=== PATIENT | female | born 1990 | race Two or more races ===

== ENCOUNTER 2024-07-09 21:05 | Emergency (ER) | payer MEDICAID, OTHER ==
[~2024-07-09] VITALS: Ht 167.6 cm; Wt 110.5 kg
[2024-07-09 21:11] VITALS: BP 142/80; RESP 18; O2SAT 95
[2024-07-09] MEDS ORDERED: NITROGLYCERIN 0.4 MG SL TAB SL ONE (21:15)
[2024-07-09 23:00] LABS: Basophils # (auto) 0.1 10 ^3/uL (0-0.2); Basophils % (auto) 0.6 % (0.0-2.0); Eosinophils # (auto) 0.3 10 ^3/uL (0-0.8); Eosinophils % (auto) 2.4 % (0.0-7.0); Hematocrit 43.2 % (36.0-46.0); Hemoglobin 14.5 g/dL (12.2-16.2); Lymphocytes # (auto) 3.5 10 ^3/uL (0.4-5.4); Lymphocytes % (auto) 31.2 % (10.0-50.0); Mean Corpuscular Hemoglobin 32.1 pg (28.0-32.0); Mean Corpuscular Hgb Conc. 33.6 g/dL (32.0-36.0); Mean Corpuscular Volume 95.6 fL (80.0-100.0); Monocytes # (auto) 0.8 10 ^3/uL (0-1.3); Monocytes % (auto) 6.9 % (0.0-12.0); Neutrophils # (auto) 6.7 10 ^3/uL (1.6-8.6); Neutrophils % (auto) 58.9 % (37.0-80.0); Platelet Count (auto) 347 10^3/uL (140-450); Red Blood Cells 4.52 10^6/uL (4.0-5.20); Red Cell Distribution Width 13.6 % (11.8-14.3); White Blood Cell 11.3 10^3/uL (4.4-10.8)
[2024-07-09 23:10] LABS: Alanine Aminotransferase 30 U/L (7-40); Albumin 4.4 g/dL (3.2-4.8); Alkaline Phosphatase 77 U/L (46-116); Anion Gap 4 (5-15); Aspartate Aminotransferase 17 U/L (13-40); BUN/Creatinine Ratio 7.4 (10.0-20.0); Bilirubin, Total 0.4 mg/dL (0.2-1.0); Blood Urea Nitrogen 7 mg/dL (9-23); Calcium 9.5 mg/dL (8.7-10.4); Carbon Dioxide 29 mmol/L (20-31); Chloride 105 mmol/L (98-107); Glucose 89 mg/dL (74-106); Potassium 4.3 mmol/L (3.5-5.1); Sodium 138 mmol/L (136-145); Total Protein 6.6 g/dL (5.7-8.2)
[2024-07-10 00:01] LABS: Amphetamine Screen, Urine Neg (NEGATIVE); Barbiturate Scree,Urine Neg (NEGATIVE); Benzodiazephine Screen, Urine Pos (NEGATIVE); Cocaine Screen, Urine Neg (NEGATIVE); Opiate Scree,Urine Pos (NEGATIVE)
[2024-07-10 00:02] LABS: Cannabinoid Screen, Urine Neg (NEGATIVE); Phencyclidine Screen, Urine Neg (NEGATIVE)
[2024-07-10 00:07] LABS: Urine Bacteria FEW /hpf (None Seen); Urine Blood Negative /uL (Negative); Urine Clarity Clear (Clear); Urine Color Yellow (Yellow); Urine Mucus FEW (None Seen); Urine Protein, UAD Negative (Negative); Urine Specific Gravity 1.026 (1.001-1.035); Urine Urobilinogen Normal (Negative); Urine WBC 1 /hpf (0 - 5); Urine pH 5.5 (5.0-9.0)
[2024-07-10 00:14] VITALS: PULSE 86
== END 2024-07-10 02:00 | disposition left against medical advice (07) ==
LOC: ER 21:05
DX: R07.9 Chest pain, unspecified (principal); R10.2 Pelvic and perineal pain; J45.909 Unspecified asthma, uncomplicated; E78.5 Hyperlipidemia, unspecified; Z88.6 Allergy status to analgesic agent; Z79.899 Other long term (current) drug therapy
CPT/HCPCS: 36415; 71045; 80053; 80307; 81001; 83605; 84484; 84702; 85025; 85379; 93005

== ENCOUNTER 2024-09-06 10:47 | Emergency (ER) | payer MEDICAID ==
[~2024-09-06] VITALS: Ht 162.6 cm; Wt 113.4 kg
[2024-09-06 12:10] VITALS: BP 121/72; PULSE 96; RESP 14; TEMP 99.2; O2SAT 95
[2024-09-06 12:21] LABS: Urine Bacteria None Seen /hpf (None Seen)
--- NOTE | 2024-09-06 12:24 | ED.PDOC ---
General HPI Comments A 34 YEAR OLD FEMALE PRESENTS TO THE ED WITH COMPLAINT OF PELVIC PAIN. PATIENT STATES SHE HAS BEEN EXPERIENCING PELVIC PAIN FOR THE PAST 2 DAYS THAT STARTED AFTER HAVING SEXUAL INTERCOURSE WITH HER . PATIENT ALSO NOTES SHE HAS HAD MILD DIFFICULTY URINATING DUE TO HER PAIN. PATIENT DENIES DYSURIA, HEMATURIA, FLANK PAIN, FEVER, CHILLS, SHORTNESS OF BREATH, CHEST PAIN, ABDOMINAL PAIN, NAUSEA, VOMITING, HEADACHE, OR OTHER COMPLAINTS. NO OTHER SYMPTOMS OR MODIFYING FACTORS AT THIS TIME. PATIENT IS ALERT, ORIENTED X 4, AND HAS STEADY GAIT. Chief Complaint: Pelvic Pain Time Seen by MD: 11:14 Reviewed notes: Nurses Notes, Medications, Allergies Allergies: Coded Allergies: NSAIDs (Verified Allergy, Unknown, 07/09/24) Information Source: Patient Mode of Arrival: Ambulatory Severity: Moderate Inability to void: None Timing: Days Duration: Since onset, Days Prehospital treatment: None Onset: Following sexual contact Symptoms: Other (SUPRAPUBIC PAIN) History of: Sexual activity Location: Suprapubic Modifying factors: None associated signs and symptoms: None Past Medical History PAST MEDICAL HISTORY: Denies Surgical History: Hysterectomy TEACHING PASTOR History: No Pertinent TEACHING PASTOR History Family History Family History: Reviewed,noncontributory to illness Social History Smoker: Non-Smoker Alcohol: Denies ETOH Use Drugs: Denies Drug Use Lives In: Home Constitutional: denies: chills, diaphoresis, fatigue, fever, malaise, sweats, weakness, others EENTM: denies: blurred vision, double vision, ear bleeding, ear discharge, ear drainage, ear pain, ear ringing, eye pain, eye redness, hearing loss, mouth pain, mouth swelling, nasal discharge, nose bleeding, nose congestion, nose pain, photophobia, tearing, throat pain, throat swelling, voice changes, others Respiratory: denies: cough, hemoptysis, orthopnea, SOB at rest, shortness of breath, SOB with excertion, stridor, wheezing, others Cardiovascular: denies: chest pain, dizzy spells, diaphoresis, Dyspnea on exertion, edema, irregular heart beat, left arm pain, lightheadedness, palpitations, PND, syncope, others Gastrointestinal: denies: abdomen distended, abdominal pain, blood streaked bowels, constipated, diarrhea, dysphagia, difficulty swallowing, hematemesis, melena, nausea, poor appetite, poor fluid intake, rectal bleeding, rectal pain, vomiting, others Genitourinary: reports: dysuria, pain (SUPRAPUBIC PAIN); denies: abnormal va katerin bleeding, burning, dyspareunia, flank pain, frequency, hematuria, incontinence, , vagina discharge, urgency, others Neurological: denies: dizziness, fainting, headache, left sided numbness, left sided weakness, numbness, paresthesia, pre-existing deficit, right sided numbness, right sided weakness, seizure, speech problems, tingling, tremors, weakness, others Musculoskeletal: denies: back pain, gout, joint pain, joint swelling, muscle pain, muscle stiffness, neck pain, others Integumetry: denies: bruises, change in color, change in hair/nails, dryness, laceration, lesions, lumps, rash, wounds, others Allergic/Immunocompromised: denies: Difficulty Healing, Frequent Infections, Hives, Itching, others Hematologic/Lymphatic: denies: anemia, blood clots, easy bleeding, easy bruising, swollen glands, others Endocrine: denies: excessive hunger, excessive sweating, excessive thirst, excessive urination, flushing, intolerance to cold, intolerance to heat, unexplained weight gain, unexplained weight loss, others Psychiatric: denies: anxiety, bipolar disorder, depression, hopeless, panic disorder, schizophrenia, sleepless, suicidal, others All Other Systems: Reviewed and Negative Physical Exam General Appearance: No Apparent Distress, Obese HEENT: Normal ENT Inspection, PERRL/EOMI, Pharynx Normal, TMs Normal Neck: Full Range of Motion, Non-Tender, Normal, Normal Inspection Respiratory: Chest Non-Tender, Lungs Clear, No Accessory Muscle Use, No Respiratory Distress, Normal Breath Sounds Cardiovascular: No Edema, No JVD, No Murmur, No Gallop, Normal Peripheral Pulses, Regular Rate/Rhythm Breast Exam: Deferred Gastrointestinal: No Organomegaly, No Pulsatile Mass, Normal Bowel Sounds, Soft, Suprapubic (TENDERNESS, NO GUARDING AND REBOUND TENDERNESS. ) Genitalia: Deferred Pelvic: Normal External Exam, Tender Uterus Rectal: Deferred Extremities: No calf tenderness, Normal capillary refill, Normal inspection, Normal range of motion, Non-tender, No pedal edema Musculoskeletal : Apperance: Normal Neurologic: Alert, pension adviser II-XII nml as Tested, No Motor Deficits, Normal Affect, Normal Mood, No Sensory Deficits Cerebellar Function: Normal Reflexes: Normal Skin: Dry, Normal Color, Warm Peripheral Pulses: 2+ carotid (R), 2+ carotid (L) Lymphatic: No Adenopathy Was a procedure done? Was a procedure done?: No Differential Diagnosis Kidney stone (Female): N/A Kidney stone (Male): N/A Penile/Scrotal: N/A Urinary Problem (Male): N/A Urinary Problem (Female): UTI, Vaginitis, Other (UTERINE FIBROID ) X-Ray, Labs, Meds, VS Vital Signs Date Time Temp Pulse Resp B/P (MAP) Pulse Ox O2 Delivery O2 Flow Rate FiO2 09/06/24 12:10 99.2 96 14 121/72 (88) 95 99.2 09/06/24 12:10 96 14 95 Room Air 09/06/24 11:44 99.2 96 14 121/72 (88) 95 Lab Test 09/06/24 11:25 Range/Units Urine Color Light-yellow Yellow Urine Clarity Clear Clear Urine pH 5.5 5.0-9.0 Urine Specific [place] 1.014 1.001-1.035 Urine Protein Negative Negative Urine Ketones Negative Negative Urine Blood Negative Negative /uL Urine Nitrite Negative Negative Urine Bilirubin Negative Negative Urine Urobilinogen Normal Negative mg/dL Urine Leukocyte Esterase Negative Negative /uL Urine RBC 1 0 - 4 /hpf Urine WBC 2 0 - 5 /hpf Urine Squamous Epithelial Cells Few <5 /hpf Urine Bacteria None seen None Seen /hpf Urine Mucus Few None Seen Urine Yeast (Budding) Occasional None Seen /hpf Urine Glucose Normal Normal mg/dL Urine Test Negative Negative Current Medications Medications (Trade) Dose Ordered Sig/Anel Route Start Time Stop Time Status Last Admin Ketorolac Tromethamine (Toradol Injection) 60 mg ONCE ONCE IM 09/06/24 13:00 09/06/24 13:01 DC 09/06/24 12:57 PATIENT: SANTI BAKER VACCT: [id number]: [id number] : 1990 LOC: ER ROOM / BED: / AGE / SEX: 34 / F ADM STATUS: REG ER SERVICE [id number] ORDERING PHYSICIAN: CHARLENE ESCALERA PROCEDURE(s): PELUS - PELVIC REASON: SUPRAPUBIC PAIN ORDER NUMBER(s): [id number], ACCESSION NUMBER(s): [id number] INDICATION: SUPRAPUBIC PAIN TECHNIQUE: Multiple real-time grayscale transabdominal sonographic images along with color and duplex Doppler of the uterus and ovaries were obtained. COMPARISON: None FINDINGS: The uterus is not visualized. The right ovary measures 3.3 x 2.9 x 2.6 cm. Normal right ovarian color doppler flow. The left ovary is not visualized. No free fluid is identified. IMPRESSION: 1. Nonvisualized uterus and left ovary, consistent with provided history of prior hysterectomy and left oophorectomy. Otherwise, grossly unremarkable pelvic ultrasound. HS:Y ATED BY: TODD FLORENCE DO DICTATED DATE/TIME: 09/06/241315 SIGNED BY: TODD FLORENCE DO SIGNED DATE/TIME: 09/06/241315 CC: X-Ray, Labs, Meds, VS Comment EXTERNAL NOTES: NONE LABS ORDERED: UA, URINE REVIEWED AND INTERPRETED RESULTS: IMAGING ORDERED: US PELVIS: [INTERPRETED BY [employer]. NO ACUTE ABNORMALITIES VISUALIZED. P ENDING RADIOLOGY REVIEW.] INDEPENDENT HISTORIANS: NONE TREATMENTS ORDERED: TORADOL 60 MG IM PATIENT'S CASE AND RESULTS HAVE BEEN DISCUSSED WITH THE ED ATTENDING PHYSICIAN AND THEY AGREE WITH MY PLAN OF CARE. I HAVE DISCUSSED IMAGING AND LAB RESULTS WITH PATIENT AND HAVE INSTRUCTED THEM TO FOLLOW UP WITH THEIR PCP IN 1-2 DAYS. THE PATIENT FULLY UNDERSTANDS THEIR RESULTS AND IS AWARE THEY NEED TO FOLLOW UP WITH THEIR PCP FOR FURTHER EVALUATION IF THEIR SYMPTOMS PERSIST. Images Reviewed?: Images reviewed and evaluated by me Time of 1ST Reevaluation: 13:20 Reevaluation 1ST: Improved Patient Education/Counseling: Diagnosis, Treatment, Need For Follow Up Family Education/Counseling: Diagnosis, Treatment, Need For Follow Up Medical Screening: No EMC Exist At This Time Departure 1 Departure Time of Disposition: 13:20 Impression: Primary Impression: Abdominal wall pain in suprapubic region Disposition: 01 HOME / SELF CARE / HOMELESS Condition: Stable Additional Instructions: FOLLOW-UP WITH PCP IN 1 TO 2 DAYS. TAKE MEDICATIONS PRESCRIBED. RETURN TO ED FOR ANY NEW OR WORSENING SYMPTOMS. Written Prescriptions PT STATES SHE HAS PAIN MEDICATION AT HOME. Discharged With: Self Critical Care Note Critical Care Time?: No Stability Stability form required: No I personally scribed for CHARLENE ESCALERA ([email or web address]) on 09/06/24 at 12:24. Electronically submitted by Miky Sanchez ([email or web address]). I personally scribed for WINDY JOHNSON MD ([email or web address]) on 09/06/24 at 13:10. Electronically submitted by Miky Sanchez ([email or web address]). CHARLENE ESCALERA Sep 06, 2024 12:24 WINDY JOHNSON MD Sep 06, 2024 13:10
[2024-09-06 12:38] LABS: Urine Blood Negative /uL (Negative); Urine Budding Yeast OCCASIONAL /hpf (None Seen); Urine Clarity Clear (Clear); Urine Color Light-Yellow (Yellow); Urine Mucus FEW (None Seen); Urine Protein, UAD Negative (Negative); Urine Specific Gravity 1.014 (1.001-1.035); Urine Urobilinogen Normal (Negative); Urine WBC 2 /hpf (0 - 5); Urine pH 5.5 (5.0-9.0)
[2024-09-06] MEDS: KETOROLAC TROMETH 60MG/2ML VIAL IM ONE (12:57)
--- NOTE | 2024-09-06 13:18 | DVH ---
INDICATION: SUPRAPUBIC PAIN TECHNIQUE: Multiple real-time grayscale transabdominal sonographic images along with color and duplex Doppler of the uterus and ovaries were obtained. COMPARISON: None FINDINGS: The uterus is not visualized. The right ovary measures 3.3 x 2.9 x 2.6 cm. Normal right ovarian color doppler flow. The left ovary is not visualized. No free fluid is identified. IMPRESSION: 1. Nonvisualized uterus and left ovary, consistent with provided history of prior hysterectomy and le ft oophorectomy. Otherwise, grossly unremarkable pelvic ultrasound. HS:Y
== END 2024-09-06 13:20 | disposition home or self-care (01) ==
LOC: ER 10:47
DX: R10.2 Pelvic and perineal pain (principal); Z90.710 Acquired absence of both cervix and uterus; Z88.6 Allergy status to analgesic agent
CPT/HCPCS: 76856; 81001; 81025; 96372; 99285; J1885

== ENCOUNTER 2025-02-11 13:03 | Emergency (ER) | payer MEDICAID, SELFPAY ==
[~2025-02-11] VITALS: Ht 160 cm; Wt 123.9 kg
[2025-02-11 13:33] VITALS: BP 126/84; PULSE 88; RESP 20; TEMP 98.2; O2SAT 94
--- NOTE | 2025-02-11 13:43 | ED.PDOC ---
GI ASSESSMENT HPI Comments 34 year old female presents to the ED with chief complaint of suprapubic pain. Patient reports that she has been experiencing sharp suprapubic pain since this morning. Patient relays that her pain is similar to before she had her hysterectomy performed. Patient notes she has not been sexually active in 2 weeks. Patient denies any N/V/D, dysuria, hematuria, vaginal bleeding, flank pain, dizziness, fever, or chills. Chief Complaint: Pelvic Pain Time Seen by MD: 13:35 Reviewed Notes: Nurses Notes, Medications, Allergies Allergies: Coded Allergies: Acetaminophen (Verified Allergy, Unknown, 02/11/25) Hydrocodone (Verified Allergy, Unknown, 02/11/25) NSAIDs (Verified Allergy, Unknown, 07/09/24) Information Source: Patient Mode of Arrival: Ambulatory Timing: Hours Duration: Since onset Prehospital treatment: None Quality: Sharp Vomitus: None Stool: Normal Severity: Moderate Recent: None Recent Hx of: None Pain Location: Suprapubic Modifying Factors: Nothing Associated sign and symptoms: Abdominal Pain Past Medical History PAST MEDICAL HISTORY: Arthritis Past Medical History (Other): Prolapsed uterus, kyphosis Surgical History: Hysterectomy LINE SERVICE PERSON History: No Pertinent LINE SERVICE PERSON History Family History Family History: Reviewed,noncontributory to illness Social History Smoker: Non-Smoker Alcohol: Denies ETOH Use Drugs: Denies Drug Use Lives In: Home Constitutional: denies: chills, diaphoresis, fatigue, fever, malaise, sweats, weakness, others EENTM: denies: blurred vision, double vision, ear bleeding, ear discharge, ear drainage, ear pain, ear ringing, eye pain, eye redness, hearing loss, mouth pain, mouth swelling, nasal discharge, nose bleeding, nose congestion, nose pain, photophobia, tearing, throat pain, throat swelling, voice changes, others Respiratory: denies: cough, hemoptysis, orthopnea, SOB at rest, shortness of breath, SOB with excertion, stridor, wheezing, others Cardiovascular: denies: chest pain, dizzy spells, diaphoresis, Dyspnea on exertion, edema, irregular heart beat, left arm pain, lightheadedness, pa lpitations, PND, syncope, others Gastrointestinal: reports: abdominal pain (Suprapubic pain); denies: abdomen distended, blood streaked bowels, constipated, diarrhea, dysphagia, difficulty swallowing, hematemesis, melena, nausea, poor appetite, poor fluid intake, rectal bleeding, rectal pain, vomiting, others Genitourinary: denies: abnormal vagina bleeding, burning, dyspareunia, dysuria, flank pain, frequency, hematuria, incontinence, pain, , vagina discharge, urgency, others Neurological: denies: dizziness, fainting, headache, left sided numbness, left sided weakness, numbness, paresthesia, pre-existing deficit, right sided numbness, right sided weakness, seizure, speech problems, tingling, tremors, weakness, others Musculoskeletal: denies: back pain, gout, joint pain, joint swelling, muscle pain, muscle stiffness, neck pain, others Allergic/Immunocompromised: denies: Difficulty Healing, Frequent Infections, Hives, Itching, others Hematologic/Lymphatic: denies: anemia, blood clots, easy bleeding, easy bruising, swollen glands, others Endocrine: denies: excessive hunger, excessive sweating, excessive thirst, excessive urination, flushing, intolerance to cold, intolerance to heat, unexplained weight gain, unexplained weight loss, others Psychiatric: denies: anxiety, bipolar disorder, depression, hopeless, panic disorder, schizophrenia, sleepless, suicidal, others All Other Systems: Reviewed and Negative Physical Exam General Appearance: Moderate Distress, Normal HEENT: Normal ENT Inspection, Pharynx Normal, TMs Normal Neck: Full Range of Motion, Non-Tender, Normal, Normal Inspection Respiratory: Chest Non-Tender, Lungs Clear, No Accessory Muscle Use, No Respiratory Distress, Normal Breath Sounds Cardiovascular: No Edema, No JVD, No Murmur, No Gallop, Normal Peripheral Pulses, Regular Rate/Rhythm Breast Exam: Deferred Gastrointestinal: No Organomegaly, Non Tender, No Pulsatile Mass, Normal Bowel Sounds, Soft Genitalia: Deferred Pelvic: Deferred Rectal: Deferred Extremities: No calf tenderness, Normal capillary refill, Normal inspection, Normal range of motion, Non-tender, No pedal edema Musculoskeletal : Apperance: Normal Neurologic: Alert, companion II-XII nml as Tested, No Motor Deficits, Normal Affect, Normal Mood, No Sensory Deficits Cerebellar Function: Normal Reflexes: Normal Skin: Dry, Normal Color, Warm Peripheral Pulses: 3+ Radial (R), 3+ Radial (L) Lymphatic: No Adenopathy Was a procedure done? Was a procedure done?: No GI differential Dx Differential Diagnosis: Constipation, Diverticular disease, Esophagitis, Gastritis/PUD, Gastroenteritis X-Ray, Labs, Meds, VS Vital Signs Date Time Temp Pulse Resp B/P (MAP) Pulse Ox O2 Delivery O2 Flow Rate FiO2 02/11/25 13:33 98.2 88 20 126/84 (98) 94 98.2 Patient alert. Came in because of pelvic pain. Vitals stable. Answering questions. Ambulating. No sign of any distress. Explained to the patient at 4:55 p.m. that we are waiting for ultrasound. Continue monitoring. Time of 1ST Reevaluation: 14:35 Reevaluation 1ST: Unchanged Patient Education/Counseling: Diagnosis, Treatment Family Education/Counseling: No Family Present Additional Information The following tests were ordered, and results were reviewed by me: Pelvic US and UA Additional Information was gathered from interviewing the following independent historians: None I reviewed and agreed with the following test results read by other providers: Pelvic US I discussed treatment and results with medical personnel and: patient Comprehensive systems review obtained and negative except for what is stated in the HPI. Departure 1 Departure Time of Disposition: 16:47 Impression: Primary Impression: Pelvic pain Disposition: 01 HOME / SELF CARE / HOMELESS Condition: Good Discharged With: Self Comments Spoke to and examined patient at 1335, discussing treatment plan at this time. Critical Care Note Critical Care Time?: No Stability Stability form required: No Heart Score Heart Score: Heart Score Response (Comments) Value History N/A 0 EKG N/A 0 Age N/A 0 Risk Factors N/A 0 Troponin N/A 0 Total 0 I personally scribed for SHAE MIRELES MD ([email or web address]) on 02/11/25 at 13:42. Electronically submitted by Jun Pizano ([email or web address]). SHAE MIRELES MD February 11, 2025 13:42
--- NOTE | 2025-02-11 14:53 | DVH ---
INDICATION: pelvicpain TECHNIQUE: Multiple real-time grayscale transabdominal sonographic images along with color and duplex Doppler of the uterus and ovaries were obtained. COMPARISON: US PELVIC on DOS: 09/06/24 FINDINGS: The uterus surgically removed The right ovary measures 3.3 x 2.8 x 3.6 cm. 1.6 x 2 x 1.7 cm anechoic lesion associated with the ri ght ovary consistent with a follicle. The left ovary surgically removed. Subsequent color and duplex Doppler interrogation of the right ovary demonstrated. IMPRESSION: 1. Uterus surgically removed. 2. Left ovary surgically removed. 3 right ovary shows small follicle within it.
--- NOTE | 2025-02-11 17:51 | ED.PDOC ---
General HPI Comments Patient came in because of pelvic pain which started few days ago progressively getting worse. She does have a history of hysterectomy. States that she has not had any trauma to that area. Denies any burning on urination. Denies any other symptoms. Chief Complaint: Pelvic Pain Time Seen by MD: 13:17 Reviewed notes: Nurses Notes, Medications, Allergies Allergies: Coded Allergies: Acetaminophen (Verified Allergy, Unknown, 02/11/25) Hydrocodone (Verified Allergy, Unknown, 02/11/25) NSAIDs (Verified Allergy, Unknown, 07/09/24) Information Source: Patient Mode of Arrival: Ambulatory Severity: Mild Timing: Days Duration: Since onset Onset: Spontaneous Location: Suprapubic Past Medical History PAST MEDICAL HISTORY: Arthritis Past Medical History (Other): Prolapsed uterus, kyphosis Surgical History: Hysterectomy MEDIA CONSULTANT OUTSIDE SALES History: No Pertinent MEDIA CONSULTANT OUTSIDE SALES History Family History Family History: Reviewed,noncontributory to illness Social History Smoker: Non-Smoker Alcohol: Denies ETOH Use Drugs: Denies Drug Use Lives In: Home Constitutional: denies: chills, diaphoresis, fatigue, fever, malaise, sweats, weakness, others EENTM: denies: blurred vision, double vision, ear bleeding, ear discharge, ear drainage, ear pain, ear ringing, eye pain, eye redness, hearing loss, mouth pain, mouth swelling, nasal discharge, nose bleeding, nose congestion, nose pain, photophobia, tearing, throat pain, throat swelling, voice changes, others Respiratory: denies: cough, hemoptysis, orthopnea, SOB at rest, shortness of breath, SOB with excertion, stridor, wheezing, others Cardiovascular: denies: chest pain, dizzy spells, diaphoresis, Dyspnea on exertion, edema, irregular heart beat, left arm pain, lightheadedness, palpitations, PND, syncope, others Gastrointestinal: denies: abdomen distended, abdominal pain, blood streaked bowels, constipated, diarrhea, dysphagia, difficulty swallowing, hematemesis, melena, nausea, poor appetite, poor fluid intake, rectal bleeding, rectal pain, vomiting, others Genitourinary: reports: pain (Pelvis); denies: abnormal vagina bleeding, burning, dyspareunia, dysuria, flank pain, frequency, hematuria, incontinence, , vagina discharge, urgency, others Neurological: reports: paresthesia; denies: dizziness, fainting, headache, left sided numbness, left sided weakness, numbness, pre-existing deficit, right sided numbness, right sided weakness, seizure, speech problems, tingling, tremors, weakness, others Musculoskeletal: denies: back pain, gout, joint pain, joint swelling, muscle pain, muscle stiffness, neck pain, others Integumetry: denies: bruises, change in color, change in hair/nails, dryness, laceration, lesions, lumps, rash, wounds, others Allergic/Immunocompromised: denies: Difficulty Healing, Frequent Infections, Hives, Itching, others Hematologic/Lymphatic: denies: anemia, blood clots, easy bleeding, easy bruising, swollen glands, others Endocrine: denies: excessive hunger, excessive sweating, excessive thirst, excessive urination, flushing, intolerance to cold, intolerance to heat, unexplained weight gain, unexplained weight loss, others Psychiatric: denies: anxiety, bipolar disorder, depression, hopeless, panic disorder, schizophrenia, sleepless, suicidal, others Physical Exam General Appearance: Moderate Distress HEENT: Normal ENT Inspection, Pharynx Normal, TMs Normal Neck: Full Range of Motion, Non-Tender, Normal, Normal Inspection Respiratory: Chest Non-Tender, Lungs Clear, No Accessory Muscle Use, No Respiratory Distress, Normal Breath Sounds Cardiovascular: No Edema, No JVD, No Murmur, No Gallop, Normal Peripheral Pulses, Regular Rate/Rhythm Breast Exam: Deferred Gastrointestinal: No Organomegaly, Non Tender, No Pulsatile Mass, Normal Bowel Sounds, Soft Genitalia: Deferred Pelvic: Deferred Rectal: Deferred Extremities: No calf tenderness, Normal capillary refill, Normal inspection, Normal range of motion, Non-tender, No pedal edema Musculoskeletal : Apperance: Normal Neurologic: Alert, portfolio director II-XII nml as Tested, No Motor Deficits, Normal Affect, Normal Mood, No Sensory Deficits Cerebellar Function: Normal Reflexes: Normal Skin: Dry, Normal Color, Warm Peripheral Pulses: 3+ Radial (R), 3+ Radial (L) Lymphatic: No Adenopathy Was a procedure done? Was a procedure done?: No Differential Diagnosis Kidney stone (Female): Musculoskeletal pain, Urinary obstruction, Urolithiasis X-Ray, Labs, Meds, VS Vital Signs Date Time Temp Pulse Resp B/P (MAP) Pulse Ox O2 Delivery O2 Flow Rate FiO2 02/11/25 13:33 98.2 88 20 126/84 (98) 94 98.2 Patient alert. Ambulating. Vitals stable. Answering questions. Ultrasound reviewed does not show any acute process. Could not find the patient to explained the ultrasound report. We will have the staff call the patient. Continue to monitor. Continue to search for the patient. Time of 1ST Reevaluation: 16:47 Reevaluation 1ST: Improved Time of 2ND Reevaluation: 17:49 Reevaluation 2ND: Improved Patient Education/Counseling: Diagnosis, Treatment, Prognosis, Need For Follow Up Family Education/Counseling: No Family Present Departure 1 Departure Time of Disposition: 16:47 Impression: Primary Impression: Pelvic pain Disposition: 30 STILL A PATIENT Condition: Good Discharged With: Self Critical Care Note Critical Care Time?: No Stability Stability form required: No Heart Score Heart Score: Heart Score Response (Comments) Value History N/A 0 EKG N/A 0 Age N/A 0 Risk Factors N/A 0 Troponin N/A 0 Total 0 SHAE MIRELES MD February 11, 2025 17:51
== END 2025-02-11 17:51 | disposition left against medical advice (07) ==
LOC: ER 13:13
DX: R10.2 Pelvic and perineal pain (principal); M19.90 Unspecified osteoarthritis, unspecified site; Z90.710 Acquired absence of both cervix and uterus; Z88.5 Allergy status to narcotic agent; Z88.6 Allergy status to analgesic agent
CPT/HCPCS: 76830; 76856

== ENCOUNTER 2025-05-05 10:45 | Emergency (ER) | payer SELFPAY ==
[~2025-05-05] VITALS: Ht 160 cm; Wt 127.3 kg
--- NOTE | 2025-05-05 11:11 | ED.PDOC ---
HPI (NEURO) HPI Comments 35 y/o F, with PMHx of HTN presents to the for CC of chest pain. Patient states, she has been having a generalized headache with associated symptoms of nausea and body-pain x1week. Patient reports, new onset symptoms of chest pain with shortness of breath as of this morning (05/05/25). Patient denies vomiting, photophobia, fatigue, weakness, palpitations, or recent cough. No other associated symptoms, modifiers, recent injuries or sick contacts present at this time. Chief Complaint: Headache Time Seen by MD: 11:00 Reviewed Notes: Nurses Notes, Medications, Allergies Information Source: Patient Mode of Arrival: Ambulatory Severity: Moderate Headache Severity: Moderate Timing: Weeks Duration: Since onset Prehospital treatment: None Headache Location: Generalized Onset: At rest Circumstances: Spontaneous Symptoms: None History of: None Modifying factors: Nothing Associated Signs and Symptoms: Headache, None Past Medical History PAST MEDICAL HISTORY: Arthritis Surgical History: Hysterectomy PROGRAM DIRECTOR/MORNING SHOW HOST History: No Pertinent PROGRAM DIRECTOR/MORNING SHOW HOST History Family History Family History: Reviewed,noncontributory to illness Social History Smoker: Non-Smoker Alcohol: Denies ETOH Use Drugs: Denies Drug Use Lives In: Home Constitutional: denies: chills, diaphoresis, fatigue, fever, malaise, sweats, weakness, others EENTM: denies: blurred vision, double vision, ear bleeding, ear discharge, ear drainage, ear pain, ear ringing, eye pain, eye redness, hearing loss, mouth pain, mouth swelling, nasal discharge, nose bleeding, nose congestion, nose pain, photophobia, tearing, throat pain, throat swelling, voice changes, others Respiratory: reports: shortness of breath; denies: cough, hemoptysis, orthopnea, SOB at rest, SOB with excertion, stridor, wheezing, others Cardiovascular: reports: chest pain; denies: dizzy spells, diaphoresis, Dyspnea on exertion, edema, irregular heart beat, left arm pain, lightheadedness, palpitations, PND, syncope, others Gastrointestinal: reports: nausea; denies: abdomen distended, abdominal pain, blood streaked bowels, constipated, diarrhea, dysphagia, difficulty swallowing, hematemesis, melena, poor appetite, poor fluid intake, rectal bleeding, rectal pain, vomiting, others Genitourinary: denies: abnormal vagina bleeding, burning, dyspareunia, dysuria, flank pain, frequency, hematuria, incontinence, pain, , vagina discharge, urgency, others Neurological: reports: headache; denies: dizziness, fainting, left sided numbness, left sided weakness, numbness, paresthesia, pre-existing deficit, right sided numbness, right sided weakness, seizure, speech problems, tingling, tremors, weakness, others Musculoskeletal: denies: back pain, gout, joint pain, joint swelling, muscle pain, muscle stiffness, neck pain, others Integumetry: denies: bruises, change in color, change in hair/nails, dryness, laceration, lesions, lumps, rash, wounds, others Allergic/Immunocompromised: denies: Difficulty Healing, Frequent Infections, Hives, Itching, others Hematologic/Lymphatic: denies: anemia, blood clots, easy bleeding, easy bruising, swollen glands, others Endocrine: denies: excessive hunger, excessive sweating, excessive thirst, excessive urination, flushing, intolerance to cold, intolerance to heat, unexplained weight gain, unexplained weight loss, others Psychiatric: denies: anxiety, bipolar disorder, depression, hopeless, panic disorder, schizophrenia, sleepless, suicidal, others All Other Systems: Reviewed and Negative Physical Exam General Appearance: Moderate Distress HEENT: Normal ENT Inspection, Pharynx Normal, TMs Normal Neck: Full Range of Motion, Non-Tender, Normal, Normal Inspection Respiratory: Chest Non-Tender, Lungs Clear, No Accessory Muscle Use, No Respiratory Distress, Normal Breath Sounds Cardiovascular: No Edema, No JVD, No Murmur, No Gallop, Normal Peripheral Pulses, Regular Rate/Rhythm Breast Exam: Deferred Gastrointestinal: No Organomegaly, Non Tender, No Pulsatile Mass, Normal Bowel Sounds, Soft Genitalia: Deferred Pelvic: Deferred Rectal: Deferred Extremities: No calf tenderness, Normal capillary refill, Normal inspection, Normal range of motion, Non-tender, No pedal edema Musculoskeletal : Apperance: Normal Neurologic: Alert, director operations II-XII nml as Tested, No Motor Deficits, Normal Affect, Normal Mood, No Sensory Deficits Cerebellar Function: Normal Reflexes: Normal Skin: Dry, Normal Color, Warm Peripheral Pulses: 3+ Radial (R), 3+ Radial (L) Lymphatic: No Adenopathy Was a procedure done? Was a procedure done?: No Differential Diagnosis (SZ) Seizure: Psychogenic Seizure, Closed Head Injury, CVA/TIA, N/A General Weakness: N/A Headache: Cluster, Migraine X-Ray, Labs, Meds, VS Vital Signs Date Time Temp Pulse Resp B/P (MAP) Pulse Ox O2 Delivery O2 Flow Rate FiO2 05/05/25 10:46 98.2 78 18 127/76 98 98.2 Lab Test 05/05/25 11:51 05/05/25 11:07 Range/Units Troponin I High Sensitivity < 3 L </=34 ng/L Urine Color Yellow Yellow Urine Clarity Clear Clear Urine pH 6.5 5.0-9.0 Urine Specific [place] 1.018 1.001-1.035 Urine Protein Negative Negative Urine Ketones Negative Negative Urine Blood Negative Negative /uL Urine Nitrite Negative Negative Urine Bilirubin Negative Negative Urine Urobilinogen Normal Negative mg/dL Urine Leukocyte Esterase Negative Negative /uL Urine RBC 2 0 - 4 /hpf Urine Microscopic WBC < 1 0-5 /HPF Urine Squamous Epithelial Cells Few <5 /hpf Urine Bacteria None seen None Seen /hpf Urine Glucose Normal Normal mg/dL Patient alert. Complaining of chest discomfort. Vitals stable. Answering questions. Saturation pristine on room air. Heart rate within normal limits. Urinalysis within normal limits. Cardiac marker within normal limits. Explained to the patient. Was told to follow up with her primary care physician. Was told to come back if there is any problem. Time of 1ST Reevaluation: 11:30 Reevaluation 1ST: Improved Time of 2ND Reevaluation: 13:29 Reevaluation 2ND: Improved Patient Education/Counseling: Diagnosis, Treatment Family Education/Counseling: No Family Present Departure 1 Departure Time of Disposition: 13:36 Impression: Primary Impression: Musculoskeletal pain Disposition: 01 HOME / SELF CARE / HOMELESS Condition: Good Discharged With: Self Critical Care Note Critical Care Time?: No Stability Stability form required: No Heart Score Heart Score: Heart Score Response (Comments) Value History Slightly Suspicious 0 EKG Normal 0 Age <45 0 Risk Factors No known risk factors 0 Troponin Normal limit 0 Total 0 I personally scribed for SHAE MIRELES MD ([email or web address]) on 05/05/25 at 11:11. Electronically submitted by Dotty Dawkins ([email or web address]). SHAE MIRELES MD May 05, 2025 11:11
[2025-05-05 12:45] LABS: Urine Protein, UAD Negative (Negative)
[2025-05-05 13:40] VITALS: BP 138/75; PULSE 79; RESP 16; TEMP 98.3; O2SAT 100
== END 2025-05-05 13:55 | disposition home or self-care (01) ==
LOC: ER 10:45
DX: M79.18 Myalgia, other site (principal); M19.90 Unspecified osteoarthritis, unspecified site; Z90.710 Acquired absence of both cervix and uterus
CPT/HCPCS: 36415; 81001; 84484

== ENCOUNTER 2025-05-09 09:21 | Emergency (ER) | payer SELFPAY ==
[~2025-05-09] VITALS: Ht 160 cm; Wt 125.8 kg
[2025-05-09 09:23] VITALS: BP 119/81; PULSE 91; RESP 18; TEMP 98.1; O2SAT 99
--- NOTE | 2025-05-09 09:52 | ED.PDOC ---
FACTORER HPI Comments 35 year old female presents to the ED with a chief complaint of vaginal d ischarge onset 3 days. Patient states she has been experiencing vaginal discharge with foul odor as well as bumps on vaginal region, headaches for the past 3 days. She is sexually active with 1 partner. Was recently seen in this ED, states symptoms have not improved. Denies any PMHx as well as nausea, vomiting, diarrhea, chest pain, shortness of breath. No other symptoms or modifying factors present at this time. Chief Complaint: Vaginal Discharge Time Seen by MD: 09:40 Reviewed Notes: Medications, Allergies Allergies: Coded Allergies: Hydrocodone (Verified Allergy, Unknown, 02/11/25) Morphine (Verified Allergy, Unknown, 05/05/25) NSAIDs (Verified Allergy, Unknown, 07/09/24) Information Source: Patient Mode of Arrival: Ambulatory Timing: Days Prehospital treatment: None Severity: Moderate Vaginal Lesions: Other (bumps) Vaginal Mass: None Onset Of Mass/Bleeding: Spontaneous Sexual Activity: Sexually Active Associated Signs and Symptoms: Vaginal Discharge Past Medical History PAST MEDICAL HISTORY: Arthritis Surgical History: Hysterectomy WHITE HAT HACKER History: No Pertinent WHITE HAT HACKER History Family History Family History: Reviewed,noncontributory to illness Social History Smoker: Non-Smoker Alcohol: Denies ETOH Use Drugs: Denies Drug Use Lives In: Home Constitutional: denies: chills, diaphoresis, fatigue, fever, malaise, sweats, weakness, others EENTM: denies: blurred vision, double vision, ear bleeding, ear discharge, ear drainage, ear pain, ear ringing, eye pain, eye redness, hearing loss, mouth pain, mouth swelling, nasal discharge, nose bleeding, nose congestion, nose pain, photophobia, tearing, throat pain, throat swelling, voice changes, others Respiratory: denies: cough, hemoptysis, orthopnea, SOB at rest, shortness of breath, SOB with excertion, stridor, wheezing, others Cardiovascular: denies: chest pain, dizzy spells, diaphoresis, Dyspnea on exertion, edema, irregular heart beat, left arm pain, lightheadedness, palpitations, PND, syncope, others Gastrointestinal: denies: abdomen distended, abdominal pain, blood streaked bowels, constipated, diarrhea, dysphagia, difficulty swallowing, hematemesis, melena, nausea, poor appetite, poor fluid intake, rectal bleeding, rectal pain, vomiting, others Genitourinary: reports: vagina discharge, others (vaginal bumps); denies: abnormal vagina bleeding, burning, dyspareunia, dysuria, flank pain, frequency, hematuria, incontinence, pain, , urgency Neurological: reports: headache; denies: dizziness, fainting, left sided numbness, left sided weakness, numbness, paresthesia, pre-existing deficit, right sided numbness, right sided weakness, seizure, speech problems, tingling, tremors, weakness, others Musculoskeletal: denies: back pain, gout, joint pain, joint swelling, muscle pain, muscle stiffness, neck pain, others Integumetry: denies: bruises, change in color, change in hair/nails, dryness, laceration, lesions, lumps, rash, wounds, others Allergic/Immunocompromised: denies: Difficulty Healing, Frequent Infections, Hives, Itching, others Hematologic/Lymphatic: denies: anemia, blood clots, easy bleeding, easy bruising, swollen glands, others Endocrine: denies: excessive hunger, excessive sweating, excessive thirst, excessive urination, flushing, intolerance to cold, intolerance to heat, unexplained weight gain, unexplained weight loss, others Psychiatric: denies: anxiety, bipolar disorder, depression, hopeless, panic disorder, schizophrenia, sleepless, suicidal, others All Other Systems: Reviewed and Negative Physical Exam General Appearance: Moderate Distress, Normal HEENT: Normal ENT Inspection, Pharynx Normal, TMs Normal Neck: Full Range of Motion, Non-Tender, Normal, Normal Inspection Respiratory: Chest Non-Tender, Lungs Clear, No Accessory Muscle Use, No Respiratory Distress, Normal Breath Sounds Cardiovascular: No Edema, No JVD, No Murmur, No Gallop, Normal Peripheral Pulses, Regular Rate/Rhythm Breast Exam: Deferred Gastrointestinal: No Organomegaly, Non Tender, No Pulsatile Mass, Normal Bowel Sounds, Soft Genitalia: Deferred Pelvic: Deferred Rectal: Deferred Extremities: No calf tenderness, Normal capillary refill, Normal inspection, Normal range of motion, Non-tender, No pedal edema Musculoskeletal : Apperance: Normal Neurologic: Alert, detail drafter II-XII nml as Tested, No Motor Deficits, Normal Affect, Normal Mood, No Sensory Deficits Cerebellar Function: Normal Reflexes: Normal Skin: Dry, Normal Color, Warm Peripheral Pulses: 3+ Radial (R), 3+ Radial (L) Lymphatic: No Adenopathy Was a procedure done? Was a procedure done?: No Differential Diagnosis (WHITE HAT HACKER) Vaginal Bleeding: Menorrhagia, Menometrorrhagia, Menstrual Bleeding, Myomatous Uterus X-Ray, Labs, Meds, VS Vital Signs Date Time Temp Pulse Resp B/P (MAP) Pulse Ox O2 Delivery O2 Flow Rate FiO2 05/09/25 09:23 98.1 91 18 119/81 99 98.1 Lab Test 05/09/25 14:43 Range/Units Urine Color Light-yellow Yellow Urine Clarity Turbid H Clear Urine pH 5.5 5.0-9.0 Urine Specific [place] 1.007 1.001-1.035 Urine Protein Negative Negative Urine Ketones Negative Negative Urine Blood Negative Negative /uL Urine Nitrite Negative Negative Urine Bilirubin Negative Negative Urine Urobilinogen Normal Negative mg/dL Urine Leukocyte Esterase 1+ Negative /uL Urine Glucose Normal Normal mg/dL Patient alert. States that she has foul-smelling urine. Vitals stable. Answering questions. Has been seen recently in the ER. Abdomen is soft nontender. No leg swelling. Lungs clear. Physical examination pristine. Unknown about her symptoms. Physical examination vitals signs all pristine. She does come regularly to the ER even though she was told to follow up with her primary care physician. No acute process. Urinalysis shows UTI. Was given prescription of Macrobid antibiotic. Explained to the patient that she will need to follow up with her OBGYN. Was told to follow up with her primary care physician. Was told to come back if there is any problem. Time of 1ST Reevaluation: 10:10 Reevaluation 1ST: Improved Patient Education/Counseling: Diagnosis, Treatment, Prognosis Family Education/Counseling: Diagnosis, Treatment, Prognosis Departure 1 Departure Time of Disposition: 10:50 Impression: Primary Impression: UTI (urinary tract infection) Qualified Codes: N30.00 - Acute cystitis without hematuria Additional Impression: Musculoskeletal pain Disposition: 01 HOME / SELF CARE / HOMELESS Condition: Good e-Prescriptions Nitrofurantoin Monohydrate Mac (Macrobid) 100 Mg Cap 100 MG PO BID for 7 Days, #14 CAP Prov: SHAE MIRELES MD 05/09/25 Discharged With: Self Critical Care Note Critical Care Time?: No Stability Stability form required: No Heart Score Heart Score: Heart Score Response (Comments) Value History N/A 0 EKG N/A 0 Age N/A 0 Risk Factors N/A 0 Troponin N/A 0 Total 0 I personally scribed for SAHE MIRELES MD ([email or web address]) on 05/09/25 at 09:52. Electronically submitted by Dora Fitzgerald ([email or web address]). SHAE MIRELES MD May 09, 2025 09:52
[2025-05-09 14:54] LABS: Urine Protein, UAD Negative (Negative)
[2025-05-09] MEDS ORDERED: NITR-87 PO (15:01)
== END 2025-05-09 16:17 | disposition home or self-care (01) ==
LOC: ER 09:21
DX: N39.0 Urinary tract infection, site not specified (principal); M79.18 Myalgia, other site; M19.90 Unspecified osteoarthritis, unspecified site; Z90.710 Acquired absence of both cervix and uterus; Z88.6 Allergy status to analgesic agent; Z88.5 Allergy status to narcotic agent
CPT/HCPCS: 81003

== ENCOUNTER 2025-07-27 15:03 | Emergency (ER) | payer OTHER, SELFPAY ==
[~2025-07-27] VITALS: Ht 165.1 cm; Wt 127.4 kg
[~2025-07-27 15:03] MED LIST: NITR-87 PO
[2025-07-27 15:05] VITALS: BP 134/92; RESP 20; TEMP 98.9; O2SAT 94
--- NOTE | 2025-07-27 16:23 | ED.PDOC ---
History of Present Illness HPI Comments Ms. Hoffman is a 35 year old female with no prior medical history, who presents today with chief complaint of chest pain. She refers sudden onset of sharp/burning retrosternal chest pain, which radiates to her neck, 9/10 intensity, associated with nausea, vomiting, diaphoresis, shortness of breath, palpitations, without aggravating or relieving factors. She denies coughing, lower extremity swelling, congestion, and reflux. Additionally refers ongoing vaginal discharge with fishy odor for the last 3 months. Due to persistence of symptoms, she presented today for further evaluation. On initial evaluation, the patient seemed well, vitals were stable, and she referred that the chest pain gallagher d resolved. Chief Complaint: Vaginal Discharge Time Seen by MD: 15:13 Allergies: Coded Allergies: Flu Virus Vaccine (Verified Allergy, Unknown, 07/27/25) Hydrocodone (Verified Allergy, Unknown, 02/11/25) Morphine (Verified Allergy, Unknown, 05/05/25) NSAIDs (Verified Allergy, Unknown, 07/09/24) Home Meds Active Scripts Nitrofurantoin Monohydrate Mac (Macrobid) 100 Mg Cap, 100 MG PO BID for 7 Days, #14 CAP Prov:SHAE MIRELES MD 05/09/25 Mode of Arrival: Ambulatory Severity: None Timing: Hours Duration: Since onset Past Medical History PAST MEDICAL HISTORY: Arthritis Surgical History: Hysterectomy MARKLOGIC DEVELOPER History: No Pertinent MARKLOGIC DEVELOPER History Family History Family History: Reviewed,noncontributory to illness, Family hx of HTN Social History Smoker: Non-Smoker Alcohol: Denies ETOH Use Drugs: Denies Drug Use Lives In: Home Constitutional: denies: chills, diaphoresis, fatigue, fever, malaise, sweats, weakness EENTM: denies: blurred vision, double vision, ear discharge, ear drainage, ear pain, ear ringing, eye pain, hearing loss, nasal discharge, nose congestion, nose pain, photophobia, tearing, throat pain, throat swelling Respiratory: reports: shortness of breath, SOB with excertion; denies: cough, hemoptysis, orthopnea Cardiovascular: reports: chest pain, diaphoresis, palpitations; denies: dizzy spells, Dyspnea on exertion, edema, irregular heart beat, left arm pain, lightheadedness Gastrointestinal: reports: nausea, vomiting; denies: abdomen distended, abdominal pain, blood streaked bowels, constipated, diarrhea, dysphagia, difficulty swallowing, hematemesis, melena, poor appetite, poor fluid intake Genitourinary: reports: vagina discharge, others (Fish like vaginal odor ); de nies: burning, dysuria, flank pain, frequency, hematuria, incontinence, pain, urgency Neurological: denies: dizziness, fainting, headache, numbness, paresthesia, seizure, speech problems, tingling, tremors, weakness Musculoskeletal: denies: back pain, joint pain, joint swelling, muscle pain, muscle stiffness, neck pain Integumetry: denies: bruises, dryness, laceration, lesions, lumps, rash, wounds Psychiatric: reports: anxiety Physical Exam General Appearance: Normal, Obese HEENT: Normal ENT Inspection, PERRL/EOMI, Pharynx Normal Neck: Full Range of Motion, Non-Tender, Normal Inspection Respiratory: Chest Non-Tender, Lungs Clear, No Accessory Muscle Use, No Respiratory Distress, Normal Breath Sounds Cardiovascular: No Edema, No Murmur, No Gallop, Normal Peripheral Pulses, Regular Rate/Rhythm Breast Exam: Deferred Gastrointestinal: Non Tender, No Pulsatile Mass, Normal Bowel Sounds Genitalia: Deferred Pelvic: Deferred Rectal: Deferred Extremities: Normal capillary refill, Normal inspection, Normal range of motion, Non-tender, No pedal edema Neurologic: Normal Affect, Normal Mood, No Sensory Deficits Cerebellar Function: Normal Reflexes: NOT DONE Skin: Normal Color Lymphatic: No Adenopathy Was a procedure done? Was a procedure done?: No EKG EKG : Pulse Rate (adult): 98 [place]: Normal Cardiac Rhythm: NSR Block: None Hypertrophy: None ST: Normal Differential Dx Considerations may include: ACS, [place], pericarditis, GERD, Anxiety X-Ray, Labs, Meds, VS Vital Signs Date Time Temp Pulse Resp B/P (MAP) Pulse Ox O2 Delivery O2 Flow Rate FiO2 07/27/25 15:15 98 07/27/25 15:15 98 07/27/25 15:05 98.9 100 20 134/92 94 98.9 Lab Test 07/27/25 15:50 07/27/25 15:21 Range/Units Urine Color Colorless Yellow Urine Clarity Clear Clear Urine pH 5.5 5.0-9.0 Urine Specific [place] 1.006 1.001-1.035 Urine Protein Negative Negative Urine Ketones Negative Negative Urine Blood Negative Negative /uL Urine Nitrite Negative Negative Urine Bilirubin Negative Negative Urine Urobilinogen Normal Negative mg/dL Urine Leukocyte Esterase Negative Negative /uL Urine RBC 1 0 - 4 /hpf Urine Microscopic WBC < 1 0-5 /HPF Urine Squamous Epithelial Cells Few <5 /hpf Urine Bacteria Few H None Seen /hpf Urine Glucose Normal Normal mg/dL White Blood Count 9.4 4.4-10.8 10^3/uL Red Blood Count 4.90 4.0-5.20 10^6/uL Hemoglobin 15.5 12.2-16.2 g/dL Hematocrit 45.2 36.0-46.0 % Mean Corpuscular Volume 92.3 80.0-100.0 fL Mean Corpuscular Hemoglobin 31.6 28.0-32.0 pg Mean Corpuscular Hemoglobin Concent 34.2 32.0-36.0 g/dL Red Cell Distribution Width 13.1 11.8-14.3 % Platelet Count 351 140-450 10^3/uL Mean Platelet Volume 8.0 6.9-10.8 fL Neutrophils (%) (Auto) 55.7 37.0-80.0 % Lymphocytes (%) (Auto) 32.5 10.0-50.0 % Monocytes (%) (Auto) 8.9 0.0-12.0 % Eosinophils (%) (Auto) 2.2 0.0-7.0 % Basophils (%) (Auto) 0.7 0.0-2.0 % Neutrophils # (Auto) 5.3 1.6-8.6 10 ^3/uL Lymphocytes # (Auto) 3.1 0.4-5.4 10 ^3/uL Monocytes # (Auto) 0.8 0-1.3 10 ^3/uL Eosinophils # (Auto) 0.2 0-0.8 10 ^3/uL Basophils # (Auto) 0.1 0-0.2 10 ^3/uL Nucleated Red Blood Cells 0.1 % Sodium Level 137 136-145 mmol/L Potassium Level 3.9 3.5-5.1 mmol/L Chloride Level 99 98-107 mmol/L Carbon Dioxide Level 30 20-31 mmol/L Anion Gap 8 5-15 Blood Urea Nitrogen 14 9-23 mg/dL Creatinine 0.97 0.550-1.02 mg/dL Glomerular Filtration Rate Calc 77 >90 mL/min BUN/Creatinine Ratio 14.4 10.0-20.0 Serum Glucose 98 74-106 mg/dL Calcium Level 9.6 8.7-10.4 mg/dL Troponin I High Sensitivity < 3 L </=34 ng/L Time of 1ST Reevaluation: 17:00 Reevaluation 1ST: Resolved Patient Education/Counseling: Diagnosis, Treatment Family Education/Counseling: No Family Present Comments Patient presented today with chief complaint of sharp burning retrosternal chest pain On initial evaluation, the patient seemed well, vitals were stable, and physical exam shows no positive findings Workup including CBC, BMP, troponins, UA, and EKG, are benign Additionally the patient referred three-month history of vaginal discharge with fishy odor, for which prescription of metronidazole will be sent It is considered that the patient's symptoms are most likely due to GERD or anxiety The patient has low cardiac risk factors, the only one being morbid obesity Vitals are stable, the patient is considered stable for discharge home SEPSIS Sepsis Screen Date sepsis recognized/suspect: Jul 27, 2025 Time Sepsis recognized/suspect: 1504 Recent Procedure: No On Antibiotic Therapy: No Respiratory Rate >20: No Heart Rate >90: Yes Temp<36 C (96.8 F) or >38.3 C: No SBP <90 or MAP <65 mmHG: No New Acute Mental Status Change: No Is the patient on CPAP, BIPAP,: No Physician Orders Electrocardigram (07/27/25 15:09) Electrocardigram (07/27/25 16:09) Electrocardigram (07/27/25 18:09) Troponin-I Hs (07/27/25 16:09) Troponin-I Hs (07/27/25 18:09) Vital Signs Date Time Temp Pulse Resp B/P (MAP) Pulse Ox O2 Delivery O2 Flow Rate FiO2 07/27/25 15:15 98 07/27/25 15:15 98 07/27/25 15:05 98.9 100 20 134/92 94 98.9 Laboratory Tests Test 07/27/25 15:21 White Blood Count 9.4 10^3/uL (4.4-10.8) Departure 1 Departure Time of Disposition: 17:15 Impression: Primary Impression: Chest pain Disposition: HOME / SELF CARE / HOMELESS Condition: Stable Additional Instructions: You presented today with chief complaint of chest pain Your workup which included a CBC, BNP, troponins, urinalysis, and EKG, are benign Your physical exam showed no positive findings Your pain may be due to many factors including anxiety and reflux Due to your complaints of vaginal discharge with fishy odor, there suspicions of bacterial vaginosis for which a prescription of metronidazole has been sent, placed a 500 mg p.o. b.i.d. for 7 days Please follow-up with your PCP within 1 week If your symptoms persist or worsen please return to the emergency department. Critical Care Note Critical Care Time?: No Stability Stability form required: BRODY Noel RESIDENT Jul 27, 2025 16:23
[2025-07-27 16:38] LABS: Hematocrit 45.2 % (36.0-46.0); Hemoglobin 15.5 g/dL (12.2-16.2); Mean Corpuscular Hemoglobin 31.6 pg (28.0-32.0); Mean Corpuscular Volume 92.3 fL (80.0-100.0); Nucleated Red Blood Cells % 0.1 %
[2025-07-27 16:47] LABS: Chloride 99 mmol/L (98-107); Potassium 3.9 mmol/L (3.5-5.1); Sodium 137 mmol/L (136-145)
[2025-07-27 16:48] LABS: Anion Gap 8 (5-15); Carbon Dioxide 30 mmol/L (20-31)
[2025-07-27 16:49] LABS: Calcium 9.6 mg/dL (8.7-10.4)
[2025-07-27 16:53] LABS: Glucose 98 mg/dL (74-106)
[2025-07-27 16:53] LABS: Urine Protein, UAD Negative (Negative)
[2025-07-27 16:54] LABS: BUN/Creatinine Ratio 14.4 (10.0-20.0); Blood Urea Nitrogen 14 mg/dL (9-23)
[2025-07-27 17:08] VITALS: PULSE 98
--- NOTE | 2025-07-28 07:38 | ECG ---
[facility] Test Date: 2025-07-27 Test Time: 15:15:38 Pat Name: SANTI BAKER Department: ED Room: Gender: F Correctional Officer: NATHANIEL : 1990 Requested By: SHAE MIRELES Order Number: [id number] Reading MD: Measurements Intervals [place]di Rate: 98 P: 43 AL: 136 QRS: -21 QRSD: 91 T: 25 QT: 331 QTc: 423 Interpretive Statements Sinus rhythm Borderline left axis deviation Low voltage, precordial leads Please click the below link to view image of tracing.
== END 2025-07-27 18:21 | disposition home or self-care (01) ==
LOC: ER 15:03
DX: R07.89 Other chest pain (principal); M19.90 Unspecified osteoarthritis, unspecified site; Z79.899 Other long term (current) drug therapy; Z90.710 Acquired absence of both cervix and uterus; Z88.7 Allergy status to serum and vaccine; Z88.6 Allergy status to analgesic agent; Z88.5 Allergy status to narcotic agent
CPT/HCPCS: 36415; 80048; 81001; 84484; 85025; 93005